=== PATIENT | female | born 1945 | race Caucasian/White ===

== ENCOUNTER 2019-08-18 13:37 | Emergency (ER) | payer MEDICARE, SELFPAY ==
--- NOTE | ~2019-08-18 | XR_ITS ---
XR wrist LT 2V 08/18/2019 16:44 Indication: Post reduction left wrist fracture Procedure: 2 views left wrist performed in fiberglass cast which obscures bone detail Comparison: 08/18/2019 Findings: There is improved alignment of comminuted intra-articular fracture distal radius. There is decreased dorsal displacement and angulation. No other fracture. There is polyarticular osteoarthriti s of the wrist most severe at the carpometacarpal joint. Impression: 1: Improved alignment of comminuted intra-articular fracture distal radius. Reviewed, dictated and finalized at location A. Impression: 1: Improved alignment of comminuted intra-articular fracture distal radius.
--- NOTE | ~2019-08-18 | CT_ITS ---
EXAMINATION: CT cervical spine wo con DATE: 08/18/2019 14:05 INDICATION: Neck pain. TECHNIQUE: Computed tomography (CT) of the cervical spine was performed without intravenous contrast. Automated exposure control and iterative reconstruction technique were employed. The dose-length pro duct was 245.30 mGy-cm. COMPARISON: None FINDINGS: There is 2 mm anterolisthesis of C3 on C4, 2 mm retrolisthesis of C4 on C5 and C5 on C6, an d 2 mm anterolisthesis of C7 on T1. Vertebral body heights are normal. There is mildly decreased disc height at C2-C3, moderately decreased disc height at C3-C4, severely decreased disc height from C4-C 5 through C6-C7, and mildly decreased disc height at C7-T1. The following disc levels are specificall y discussed: C2-C3: There is no uncovertebral joint osteoarthritis. There is severe right and mild left facet join t osteoarthritis. There is mild right neural foraminal stenosis. There is no central canal stenosis. C3-C4: There is severe bilateral uncovertebral joint osteoarthritis. There is severe right and mild l eft facet joint osteoarthritis. There is moderate right and mild left neural foraminal stenosis. Ther e is mild central canal stenosis. C4-C5: There is severe bilateral uncovertebral joint osteoarthritis. There is moderate right and karoline re left facet joint osteoarthritis. There is mild right and moderate left neural foraminal stenosis. There is moderate central canal stenosis. C5-C6: There is severe bilateral uncovertebral joint osteoarthritis. There is mild right and moderate left facet joint osteoarthritis. There is mild right and moderate left neural foraminal stenosis. Th ere is moderate central canal stenosis. C6-C7: There is severe bilateral uncovertebral joint osteoarthritis. There is severe bilateral facet joint osteoarthritis. There is mild right and moderate left neural foraminal stenosis. There is mild central canal stenosis. C7-T1: There is no uncovertebral joint osteoarthritis. There is severe bilateral facet joint osteoart hritis. There is mild bilateral neural foraminal stenosis. There is no central canal stenosis. IMPRESSION: 1. No fracture. 2. Severe cervical spondylosis. Reviewed, dictated and finalized at location A.
--- NOTE | ~2019-08-18 | XR_ITS ---
EXAMINATION: XR wrist LT min 3V DATE: 08/18/2019 14:16 INDICATION: Left wrist injury. TECHNIQUE: 4 views of left wrist were obtained. COMPARISON: None. FINDINGS: There is a comminuted fracture of distal radius with extension of fracture lines to the dis leonora articular surface and distal radioulnar joint. The main distal fracture fragment demonstrates imp action, 3 mm posterior displacement, and posterior angulation. There is 30 degrees posterior tilt of the distal articular surface. Ulnar styloid is intact. There is severe osteoarthritis of first carpom etacarpal joint. IMPRESSION: 1. Comminuted fracture of distal radius. Reviewed, dictated and finalized at location A.
--- NOTE | ~2019-08-18 | CT_ITS ---
EXAMINATION: CT brain wo con DATE: 08/18/2019 14:05 INDICATION: Head injury. TECHNIQUE: Computed tomography (CT) of the head was performed without intravenous contrast. The mA wa s adjusted according to patient size. Iterative reconstruction technique was employed. The dose-lengt h product was 605.33 mGy-cm. COMPARISON: Head CT 04/06/2006 FINDINGS: There is no intracranial hemorrhage, acute infarction, or abnormal intracranial mass lesion . The ventricles are normal in size. There is mild mucosal thickening in the ethmoid sinuses. The mas toid air cells are normal. The orbits are normal. There is left frontal lateral scalp soft tissue swe lling. IMPRESSION: 1. Normal brain. Reviewed, dictated and finalized at location A. IMPRESSION: 1. Normal brain.
[2019-08-18 13:41] VITALS: BP 135/53; PULSE 90; RESP 18; TEMP 36.3; O2SAT 97
--- NOTE | 2019-08-18 14:46 | ED.FALL ---
HPI - Fall General Chief Complaint: Fall Stated Complaint: ground level fall, wrist and head injury Time Seen by Provider: 08/18/19 14:28 History of Present Illness HPI Narrative: Patient is a 74-year-old female who presents ER status post fall. Patient was at a local establishment when she tripped over a parking block. She struck her head but did not lose consciousness. She also spent fell on her left wrist which has deformity and is painful. No numbness or tingling in the affected extremity. She is not on blood thinners. Related Data Home Medications Medication Instructions Recorded Confirmed ascorbic acid (vitamin C) 1,000 mg 1 gm PO DAILY 03/22/19 tablet aspirin 81 mg tablet,delayed 81 mg PO DAILY 03/22/19 release cholecalciferol (vitamin D3) 125 5,000 unit PO DAILY 03/22/19 mcg (5,000 unit) capsule desloratadine-pseudoephedrine ER 1 tablet PO Q12H PRN 03/22/19 2.5 mg-120 mg tab,ext.release mp 12hr glimepiride 2 mg tablet 2 mg PO QAM 03/22/19 [id number] C-Mn 500 cap PO 03/22/19 mg-400 mg capsule omega-3 360 mg-dha 144 mg-epa 216 cap PO 03/22/19 mg-fish oil 1,200 mg capsule,del rel sitagliptin 100 mg tablet 100 mg PO DAILY 03/22/19 vitamin E 400 unit capsule 400 unit PO DAILY 03/22/19 biotin mcg PO 08/18/19 Allergies Allergy/AdvReac Type Severity Reaction Status Date / Time No Known Drug Allergies Allergy Unknown Unknown Verified 08/18/19 14:19 Review of Systems Review of Systems: All systems reviewed & are unremarkable except as noted in HPI and below Cardiovascular: Cardiovascular: Denies chest pain and Denies radiating jaw, neck or arm pain Respiratory: Respiratory: Denies cough, Denies dyspnea and Denies wheezing Musculoskeletal: Musculoskeletal: Reports arthralgias and Reports joint swelling Neurologic: Denies dizziness, Reports headache(s), Denies focal weakness and Denies numbness PMFSH Past Medical History Medical History (Updated 08/18/19 @ 17:25 by Lion Cornelius MD) Chronic GERD Essential (primary) hypertension HLD (hyperlipidemia) Primary osteoarthritis, unspecified site Type 2 diabetes mellitus with hyperglycemia, without long-term current use of insulin Social History Social History Smoking status: Never smoker Second hand tobacco smoke exposure: No Alcohol intake: never Substance use: never Substance use type: does not use Gender identity (if verbalized by the patient): Female Exam Narrative: Exam Narrative: GENERAL: Well-appearing, well-nourished, and in no acute distress. HEAD: Normocephalic, bruising and swelling left forehead and supraorbital ridge EYES: PERRL and EOMI. ENT: Mucous membranes moist. Neck: No midline cervical tenderness. C-collar in place. CHEST: Clear to auscultation. No respiratory distress. HEART: Regular rate and rhythm. Normal peripheral pulses. EXTREMITIES: Focused exam of the left wrist shows deformity with tenderness palpation. Flexion extension of the fingers intact no tenderness to the elbow. Neurovascular intact. SKIN: Warm, dry, no rash. NEURO: Alert and oriented x3. Course Course Emergency Course: Informed of results, fracture reduced and splinted, contacted Dr. Valle due to the request of the family wanting to see by Dr. Leon. Will give follow-up as well as a sling and pain medication. Vital Signs Vital signs: Vital Signs Temperature 97.3 F L 08/18/19 13:41 Pulse Rate 90 08/18/19 13:41 Respiratory Rate 18 08/18/19 13:41 Blood Pressure 135/53 L 08/18/19 13:41 Pulse Oximetry 97 08/18/19 13:41 Temperature 97.3 F L 08/18/19 13:41 Pulse Rate 90 08/18/19 13:41 Respiratory Rate 18 08/18/19 13:41 Blood Pressure 135/53 L 08/18/19 13:41 Pulse Oximetry 97 08/18/19 13:41 Procedures Orthopedic Fracture Reduction Fracture #1: Fracture Reduction date: 08/18/19 Fracture Reduction
[2019-08-18] MEDS: MORPHINE SULFATE 4 MG/ML INJ IV PUSH (16:03)
[2019-08-18 18:04] VITALS: BP 122/69; PULSE 82; RESP 16; O2SAT 98
== END 2019-08-18 18:05 | disposition home or self-care (01) ==
PROVIDERS: Emergency Provider Emergency Medicine; PCP Family Medicine
DX: S52.572A Other intraarticular fracture of lower end of left radius, initial encounter for closed fracture (principal); S00.83XA Contusion of other part of head, initial encounter; K21.9 Gastro-esophageal reflux disease without esophagitis; I10 Essential (primary) hypertension; E78.5 Hyperlipidemia, unspecified; M19.90 Unspecified osteoarthritis, unspecified site; E11.9 Type 2 diabetes mellitus without complications; Z79.84 Long term (current) use of oral hypoglycemic drugs; M47.812 Spondylosis without myelopathy or radiculopathy, cervical region; W18.09XA Striking against other object with subsequent fall, initial encounter
CPT/HCPCS: 25600; 70450; 72125; 73100; 73110; 96374; 99285; A4565; J2270; L0140

== ENCOUNTER 2021-06-18 14:14 | Emergency (ER) | payer OTHER, MEDICARE, SELFPAY ==
--- NOTE | ~2021-06-18 | XR_ITS ---
EXAMINATION: XR knee RT 3V DATE: 06/18/2021 14:47 INDICATION: Right knee pain TECHNIQUE: Three views of the right knee were obtained. COMPARISON: None. FINDINGS: Alignment is normal. No fracture or osteochondral lesion. Changes of the joint replacement are noted. There is a small joint effusion. Mild soft tissue swelling is present. IMPRESSION: 1. Small joint effusion without acute osseous abnormality. Reviewed, dictated and finalized at location A.
--- NOTE | ~2021-06-18 | XR_ITS ---
EXAMINATION: XR knee LT 3V DATE: 06/18/2021 14:47 INDICATION: Left knee pain TECHNIQUE: Three views of the left knee were obtained. COMPARISON: None. FINDINGS: Alignment is normal. No fracture or osteochondral lesion. Changes of knee arthroplasty are noted. A small joint effusion is present. There is anterior soft tissue swelling of the knee. IMPRESSION: 1. Small joint effusion without acute osseous abnormality. Reviewed, dictated and finalized at location A.
--- NOTE | ~2021-06-18 | CT_ITS ---
EXAMINATION: CT cervical spine wo con DATE: 06/18/2021 14:32 INDICATION: Head injury. TECHNIQUE: Computed tomography (CT) of the cervical spine was performed without intravenous contrast. Automated exposure control and iterative reconstruction technique were employed. The dose-length pro duct was 131.45 mGy-cm. COMPARISON: CT cervical spine 08/18/2019 FINDINGS: There is 5 degrees levocurvature of cervical spine. There is 2 mm anterolisthesis of C3 on C4 and 3 mm anterolisthesis of C7 on T1. Vertebral body heights are normal. There is mildly decreased disc height at C2-C3, moderately decreased disc height at C3-C4, severely decreased disc height from C4-C5 through C6-C7, and moderately decreased disc height at C7-T1 with endplate remodeling. The fol lowing disc levels are specifically discussed: C2-C3: There is no uncovertebral joint osteoarthritis. There is severe right and mild left facet join t osteoarthritis. There is mild right neural foraminal stenosis. There is no central canal stenosis. C3-C4: There is moderate bilateral uncovertebral joint osteoarthritis. There is severe right and mild left facet joint osteoarthritis. There is moderate right and mild left neural foraminal stenosis. Th ere is mild central canal stenosis. C4-C5: There is severe bilateral uncovertebral joint osteoarthritis. There is severe bilateral facet joint osteoarthritis. There is mild right and severe left neural foraminal stenosis. There is mild ce ntral canal stenosis. C5-C6: There is severe bilateral uncovertebral joint osteoarthritis. There is severe right and modera te left facet joint osteoarthritis. There is mild right and moderate left neural foraminal stenosis. There is mild central canal stenosis. C6-C7: There is severe bilateral uncovertebral joint osteoarthritis. There is severe bilateral facet joint osteoarthritis. There is mild right and moderate left neural foraminal stenosis. There is mild central canal stenosis. C7-T1: There is no uncovertebral joint osteoarthritis. There is ankylosis of the facet joints with mi ld hypertrophy. There is mild bilateral neural foraminal stenosis. There is no central canal stenosis . IMPRESSION: 1. No fracture. 2. Severe cervical spondylosis. Reviewed, dictated and finalized at location A.
--- NOTE | ~2021-06-18 | CT_ITS ---
EXAMINATION: CT brain wo con DATE: 06/18/2021 14:31 INDICATION: Patient fell and struck left side of head, supraorbital area. TECHNIQUE: Computed tomography (CT) of the head was performed without intravenous contrast. The mA wa s adjusted according to patient size. Iterative reconstruction technique was employed. Exam dose: 60 5.33 mGy-cm total exam DLP. COMPARISON: 08/18/2019 CT brain 06/20/2016 MRI brain FINDINGS: Left supraorbital hematoma/left frontal cephalohematoma is noted. No skull fracture. There is moderate cerebral volume loss. No intracranial mass lesion or hemorrhage or cerebrovascular accide nt is detected. No midline shift or mass effect effect. There is nonspecific diminished attenuation of the cerebral white matter, likely due to chronic small vessel ischemic changes. Bilateral carotid siphon internal carotid artery calcifications are noted. No subdural or epidural hematoma is detected. Incidentally noted is persistent metopic suture; as a result, the frontal sinuses are undeveloped. The paranasal sinuses and mastoid air cells are well aerated with the exception of minimal opacificat ion of left ethmoid air cells. IMPRESSION: Left supraorbital hematoma and frontal cephalohematoma; no underlying skull fracture or clear or contrecoup intracranial hemorrhage is noted No acute intracranial abnormality Cerebral atherosclerosis and chronic small vessel ischemic changes of the cerebral white matter Reviewed, dictated and finalized at Location A. Reviewed, dictated and finalized at location B. IMPRESSION: Left supraorbital hematoma and frontal cephalohematoma; no underly ing skull fracture or clear or contrecoup intracranial hemorrhage is noted No acute intracranial abnormality Cerebral atherosclerosis and chronic small vessel ischemic changes of the cereb ral white matter
[2021-06-18 14:15] VITALS: BP 146/61; PULSE 93; RESP 16; TEMP 36.6; O2SAT 98
--- NOTE | 2021-06-18 16:10 | ED.FALL ---
HPI - Fall General Chief Complaint: Fall Stated Complaint: FALL Time Seen by Provider: 06/18/21 15:27 Source: patient and family Mode of arrival: ambulatory Limitations: no limitations History of Present Illness HPI Narrative: 75-year-old female presents to the ER after having a same level fall. Patient states she was walking into her water department and tripped on the doorway. Patient states she hit bilateral knees on hard surface and left forehead. Patient denies LOC. Patient has a history of bilateral knee replacement. Patient is on baby aspirin daily. Patient denies any other complaints. MD complaint: fall Onset (ago): hour(s) (3) Fall from: standing Fall witnessed: yes, by bystander Place fall occurred: other (Water department) Loss of consciousness: none Prolonged down time: no Symptoms prior to fall: none Context: tripped/slipped Location of injury: head Location of injury - extremities: Right: knee Associated symptoms (after fall): denies Related Data Home Medications Medication Instructions Recorded Confirmed aspirin 81 mg tablet,delayed 81 mg PO DAILY 03/22/19 05/27/21 release cholecalciferol (vitamin D3) 125 5,000 unit PO DAILY 03/22/19 05/27/21 mcg (5,000 unit) capsule desloratadine-pseudoephedrine ER 1 tablet PO Q12H PRN 03/22/19 05/27/21 2.5 mg-120 mg tab,ext.release mp 12hr [id number] C-Mn 500 cap PO 03/22/19 05/27/21 mg-400 mg capsule Allergies Allergy/AdvReac Type Severity Reaction Status Date / Time No Known Drug Allergies Allergy Unknown Unknown Verified 01/21/21 10:30 Review of Systems Review of Systems: All systems reviewed & are unremarkable except as noted in HPI and below Constitutional: Constitutional: Reports no additional constitutional complaints Eyes: Eyes: Reports no additional eye complaints ENT: Reports system reviewed and no additional complaints, except as documented Cardiovascular: Cardiovascular: Reports no additional cardiovascular complaints Respiratory: Respiratory: Reports no additional respiratory complaints Gastrointestinal: Gastrointestinal: Reports no additional gastrointestinal complaints Genitourinary: Genitourinary: Reports no additional female genitourinary complaints Musculoskeletal: Musculoskeletal: Reports arthralgias (Bilaterally) Integumentary/Breasts: Comments: Hematoma Neurologic: Reports system reviewed and no additional complaints, except as documented Psychiatric: Psychiatric: Reports no additional psychiatric complaints Endocrine: Endocrine: Reports no additional endocrine complaints Hematologic/Lymphatic: Hematologic/Lymphatic: Reports no additional hematologic/lymphatic complaints Allergic/Immunologic: Allergic/Immunologic: Reports no additional allergic/immunologic complaints [facility] Past Medical History Medical History (Updated 06/18/21 @ 16:09 by Ronnie Haile APRN) Abnormality of heart beat Arthritis Chronic GERD Depression Essential (primary) hypertension HLD (hyperlipidemia) Primary osteoarthritis, unspecified site Type 2 diabetes mellitus with hyperglycemia, without long-term current use of insulin Surgical History Surgical History History of appendectomy History of hip replacement History of hysterectomy with bilateral oophorectomy History of knee replacement Family History Family History Mother Hypertension Family history of coronary artery disease Other Diabetes mellitus Family history of arthritis Social History Social History Smoking status: Never smoker Second hand tobacco smoke exposure: No Alcohol intake: current Alcohol use details: holidays Substance use: never Substance use type: does not use Gender identity (if verbalized by the patient): Female Exam Narrative: GENERAL: Well-ap
[2021-06-18 16:24] VITALS: BP 140/64; PULSE 85; RESP 18; O2SAT 100
== END 2021-06-18 16:26 | disposition home or self-care (01) ==
PROVIDERS: Emergency Provider Nurse Practitioner Family; PCP Family Medicine
DX: S00.83XA Contusion of other part of head, initial encounter (principal); M25.562 Pain in left knee; M25.561 Pain in right knee; I10 Essential (primary) hypertension; E78.5 Hyperlipidemia, unspecified; E11.9 Type 2 diabetes mellitus without complications; Z79.82 Long term (current) use of aspirin; Z96.653 Presence of artificial knee joint, bilateral; W01.0XXA Fall on same level from slipping, tripping and stumbling without subsequent striking against object, initial encounter
CPT/HCPCS: 70450; 72125; 73562; 99284

== ENCOUNTER 2022-09-20 12:12 | Outpatient (CLI) | payer MEDICARE, SELFPAY ==
[2022-09-20 13:04] LABS: Basophils Percent Auto 0.3 % (0.2-1.2); Eosinophils Absolute Auto 0.1 K/mm3 (0-0.3); Eosinophils Percent Auto 1.6 % (0-4.4); Hematocrit 33.9 % (37.0-47.0); Hemoglobin 10.9 g/dL (12.0-15.0); Immature Granulocyte Absolute 0.02 K/mm3 (0.00-0.031); Immature Granulocyte Percent A 0.3 % (0-0.5); Lymphocytes Absolute Auto 1.95 K/mm3 (0.9-3.2); Lymphocytes Percent Auto 31.1 % (18.3-44.2); Mean Corpuscular HGB Conc 32.2 g/dl (32-36); Mean Corpuscular Hemoglobin 25.3 pg (26-34); Mean Corpuscular Volume 78.8 fl (80-100); Mean Platelet Volume 10.2 fl (7.4-10.4); Monocytes Absolute Auto 0.5 K/mm3 (0.1-0.6); Monocytes Percent Auto 8.3 % (2.6-8.5); Neutrophils Absolute Auto 3.7 K/mm3 (1.3-6.7); Neutrophils Percent Auto 58.4 % (45.5-73.1); Platelet Count Result 309 k/mm3 (150-375); Red Cell Distribution Width 15.7 % (11.5-14.5); White Blood Count 6.3 K/mm3 (4.5-10.0)
[2022-09-20 13:10] LABS: Alanine Aminotransferase 20 U/L (6-35); Albumin Level 4.2 g/dL (3.5-5.1); Alkaline Phosphatase 89 U/L (38-126); Anion Gap 25 mmol/L (8-16); Aspartate Amino Transferase 27 U/L (14-36); Bilirubin,Total 0.9 mg/dL (0.2-1.3); Blood Urea Nitrogen 21 mg/dL (7-17); Calcium 9.3 mg/dL (8.4-10.2); Carbon Dioxide 29 mmol/L (22-30); Chloride 82 mmol/L (98-107); Estimated Glomerular Filt Rate 43; Glucose 222 mg/dL (65-110); Potassium 3.7 mmol/L (3.4-5.0); Sodium 136 mmol/L (137-145)
== END 2022-09-20 12:13 | disposition home or self-care (01) ==
PROVIDERS: PCP Family Medicine; Visit Provider Family Medicine
DX: R44.3 Hallucinations, unspecified (principal); I12.9 Hypertensive chronic kidney disease with stage 1 through stage 4 chronic kidney disease, or unspecified chronic kidney disease; N18.9 Chronic kidney disease, unspecified
CPT/HCPCS: 36415; 80053; 84443; 85025

== ENCOUNTER 2022-11-16 13:27 | Observation (INO) | payer MEDICARE, SELFPAY ==
[2022-11-16] VITALS (17 sets, daily range): BP systolic 112–152; BP diastolic 53–66; PULSE 66–90; RESP 15–19; TEMP 36.5–36.6; O2SAT 96–98
--- NOTE | ~2022-11-16 | XR_ITS ---
EXAMINATION: XR chest 2V DATE: 11/16/2022 14:11 INDICATION: Chest pain radiating down the left arm. TECHNIQUE: Frontal and lateral views of the chest were obtained. COMPARISON: Chest 2 views 12/25/2015 FINDINGS: There is mild atelectasis at left lung base. No pleural effusion or pneumothorax. The heart size is normal. IMPRESSION: 1. Mild atelectasis at left lung base. Reviewed, dictated and finalized at location A.
--- NOTE | ~2022-11-16 | MR_ITS ---
EXAMINATION: MR brain/brain stem wo/w con DATE: 11/20/2022 09:58 INDICATION: Tinnitus. TECHNIQUE: Magnetic resonance imaging (MRI) of the brain and brainstem was performed without and with 12 mL MultiHance intravenous contrast. COMPARISON: Brain MRI 06/20/2016, head CT 06/18/2021 FINDINGS: There is a small old infarct in right occipital lobe. There is a small old infarct in right cerebellum. There are scattered areas of nonspecific increased T2-weighted signal intensity in the c erebral white matter, which is within normal limits for the patient's age. The ventricles are normal in size. The paranasal sinuses are clear. There are likely changes of ocular lens replacement surgeri es. The mastoid air cells are normal. IMPRESSION: 1. 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 Reviewed, dictated and finalized at location A.
--- NOTE | ~2022-11-16 | US_ITS ---
EXAMINATION: US carotid duplex BI DATE: 11/17/2022 15:07 INDICATION: Bilateral carotid bruit TECHNIQUE: Grayscale, color Doppler, and pulsed Doppler images of the cervical carotid arteries were obtained. The degree of vessel stenosis is placed in one of the following categories: normal, <50%, 5 0-69%, >=70% but less than near-occlusion, near-occlusion, or total occlusion. Note that percent sten osis relative to normal distal artery lumen diameter is indirectly measured from velocity measurement s as described by Charlie, et al. Radiology 2003; 229:340-346. Notes: Normal: Peak systolic velocity <125 centimeters/sec and no plaque <50%. Peak systolic velocity <125 ( EDV <40; ICA/CCA PSV ratio <2.0; used these factors only a tandem lesions or low cardiac output or co ntralateral disease) 50-69 %: PSV 125-230 (EDV 40-100; ratio 2-4) >= 70% but less than near occlusion: PSV greater than 230 (EDV > 100; ratio> 4.0) Near Occlusion: PSV that is variable; markedly narrowed lumen Occlusion: Absent flow on color/spectral Doppler and no lumen on santiago scale. COMPARISON: None. FINDINGS: RIGHT: The right common carotid artery (CCA) peak systolic velocity (PSV) is 78 cm/s. The right internal car otid artery (ICA) PSV is 96 cm/s. The right ICA end-diastolic velocity (EDV) is 33 cm/s. The right IC A/CCA PSV ratio is 1.2. The external carotid artery (ECA) PSV is 38 cm/s. There is antegrade flow in the right vertebral artery. LEFT: The left CCA PSV is 53 cm/s. The left ICA PSV is 79 cm/s. The left ICA EDV is 23 cm/s. The left ICA/C CA PSV ratio is 1.5. The ECA PSV is 44 cm/s. There is antegrade flow in the left vertebral artery. IMPRESSION: 1. Less than 50% stenosis in the right internal carotid artery by sonographic criteria. 2. Less than 50% stenosis in the left internal carotid artery by sonographic criteria. Reviewed, dictated and finalized at location B. IMPRESSION: 1. Less than 50% stenosis in the right internal carotid artery by sonographic c eber. 2. Less than 50% stenosis in the left internal carotid artery by sonographic cr zach.
--- NOTE | 2022-11-16 13:28 | ECG_ITS ---
Measurements Intervals [place] Rate: 75 P: 49 RI: 244 QRS: -8 QRSD: 144 T: 10 QT: 415 QTc: 466 Interpretive Statements SINUS RHYTHM WITH FIRST DEGREE AV BLOCK POSSIBLE LEFT ATRIAL ENLARGEMENT [-0.1mV P-WAVE IN V1/V2] RIGHT BUNDLE BRANCH BLOCK [120+ ms QRS DURATION, UPRIGHT V1, 40+ ms S IN I/aVL/V4/V5/V6] NO PREVIOUS ECG AVAILABLE FOR COMPARISON Electronically Signed On 11-16-2022 16:34:28 CDT by Manas Duncan M.D.
[2022-11-16 13:44] LABS: Basophils Percent Auto 0.5 % (0.2-1.2); Eosinophils Absolute Auto 0.2 K/mm3 (0-0.3); Eosinophils Percent Auto 3.5 % (0-4.4); Hematocrit 33.5 % (37.0-47.0); Hemoglobin 10.6 g/dL (12.0-15.0); Immature Granulocyte Absolute 0.02 K/mm3 (0.00-0.031); Immature Granulocyte Percent A 0.3 % (0-0.5); Lymphocytes Absolute Auto 2.23 K/mm3 (0.9-3.2); Lymphocytes Percent Auto 34.2 % (18.3-44.2); Mean Corpuscular HGB Conc 31.6 g/dl (32-36); Mean Corpuscular Hemoglobin 25.5 pg (26-34); Mean Corpuscular Volume 80.5 fl (80-100); Mean Platelet Volume 9.7 fl (7.4-10.4); Monocytes Absolute Auto 0.5 K/mm3 (0.1-0.6); Monocytes Percent Auto 6.9 % (2.6-8.5); Neutrophils Absolute Auto 3.6 K/mm3 (1.3-6.7); Neutrophils Percent Auto 54.6 % (45.5-73.1); Platelet Count Result 408 k/mm3 (150-375); Red Blood Count 4.16 M/mm3 (4.2-5.4); Red Cell Distribution Width 15.3 % (11.5-14.5); White Blood Count 6.5 K/mm3 (4.5-10.0)
[2022-11-16 13:53] LABS: Alanine Aminotransferase 20 U/L (6-35); Albumin Level 3.9 g/dL (3.5-5.1); Alkaline Phosphatase 92 U/L (38-126); Anion Gap 9 mmol/L (8-16); Aspartate Amino Transferase 31 U/L (14-36); Bilirubin,Total 0.6 mg/dL (0.2-1.3); Blood Urea Nitrogen 25 mg/dL (7-17); Calcium 9.3 mg/dL (8.4-10.2); Carbon Dioxide 26 mmol/L (22-30); Chloride 101 mmol/L (98-107); Estimated CRCL calculation 22 ml/min; Estimated Glomerular Filt Rate 36; Glucose 200 mg/dL (65-110); Lipase 94 U/L (23-300); Potassium 3.9 mmol/L (3.4-5.0); Sodium 136 mmol/L (137-145)
[2022-11-16 14:03] LABS: Prothrombin Time 13.9 Seconds (11.1-14.7)
[2022-11-16 14:05] LABS: Partial Thromboplastin Time 27.8 SECONDS (22.3-36.8); Troponin I < 0.012 ng/mL (0.000-0.034)
--- NOTE | 2022-11-16 14:13 | PC.NURSE ---
Pt sitting in bay 2 on the floor refusing to get up, stating my chest feels so tight now I cant do this! . Rene and Brandon trying to assist patient up for EKG. Pt stating he needs to lay down and cant handle this Pt made aware there are no open rooms in the ED at this time. EKG and lab work completed, pt agreeable to sit in family services room until a bed becomes available.
[2022-11-16] MEDS: ASPIRIN 81 MG CHEWABLE TABLET 324 MG PO (14:33)
--- NOTE | 2022-11-16 14:49 | ED.CHESTPAIN ---
HPI - Chest Pain General Chief Complaint: Chest Pain Stated Complaint: chest pain Time Seen by Provider: 11/16/22 14:28 History of Present Illness HPI narrative: Patient is a 77-year-old female with history of HTN, CKIII, DM, here with chest pain. she notes that the pain began yesterday and is intermittent in nature usually lasting 1-2 minutes per episode. She notes that it occurs while she is moving around as well as at rest. She states that if she gets the pain while she is doing activity she does have some associated diaphoresis and shortness of breath. She note if the episodes occur at rest she does not have these associated symptoms. Pain denies radiating to the arm or the neck. She denies any lightheadedness. she denies current chest pain. She denies any prior cardiac history, she received multiple prior normal stress test in the past which seemed to occur in conjunction with needing joint surgeries. The last of these she believes was in the early . is that she denies any lower extremity swelling or calf pain. She denies any cough, congestion, fever, chills. She does take lasix every other day for leg swelling. Related Data Home Medications Medication Instructions Recorded Confirmed aspirin 81 mg tablet,delayed 81 mg PO DAILY 03/22/19 09/20/22 release cholecalciferol (vitamin D3) 125 5,000 unit PO DAILY 03/22/19 09/20/22 mcg (5,000 unit) capsule desloratadine-pseudoephedrine ER 1 tablet PO Q12H PRN Congestion 03/22/19 09/20/22 2.5 mg-120 mg tab,ext.release mp 12hr (Clarinex-D 12 HOUR) [id number] C-Mn 500 cap PO 03/22/19 09/20/22 mg-400 mg capsule (Glucosamine Chondroitin Maximum Strength) Allergies Allergy/AdvReac Type Severity Reaction Status Date / Time No Known Drug Allergies Allergy Unknown Unknown Verified 09/20/22 11:24 Review of Systems Review of Systems: All systems reviewed & are unremarkable except as noted in HPI and below PMFSH Past Medical History Medical History Abnormality of heart beat Arthritis Chronic GERD Depression Essential (primary) hypertension HLD (hyperlipidemia) Hy kid NOS w cr kid I-IV Primary osteoarthritis, unspecified site Type 2 diabetes mellitus with hyperglycemia, without long-term current use of insulin Surgical History Surgical History History of appendectomy History of hip replacement History of hysterectomy with bilateral oophorectomy History of knee replacement Family History Family History Mother Hypertension Family history of coronary artery disease Other Diabetes mellitus Family history of arthritis Social History Social History Smoking status: Never smoker Second hand tobacco smoke exposure: No Alcohol intake: current Alcohol use details: holidays Substance use: never Substance use type: does not use Living arrangements: with family Occupation/Education: retired Gender identity (if verbalized by the patient): Female Exam Narrative: GENERAL: Well-appearing, well-nourished, and in no acute distress. HEAD: Normocephalic, atraumatic. EYES: PERRLA and EOMI. ENT: Nares clear. Mucous membranes moist. NECK: Supple. CHEST: Clear to auscultation. No respiratory distress. HEART: Regular rate and rhythm. Normal peripheral pulses. ABDOMEN: Soft, nontender, nondistended. EXTREMITIES: Normal range of motion. No Calf tenderness or leg edema. SKIN: Warm, dry, no rash. NEURO: No focal deficits. Alert and oriented x3. PSYCH: Normal mood and affect. Course Course Emergency Course: Chart review performed. Patient here with chest pain x2 days and dizziness. Triage vitals show HTN, otherwise normal. Triage workup reviewed. CBC at her baseline. Mild RUTHANN with creatinine at
[2022-11-16 16:47] LABS: Troponin I < 0.012 ng/mL (0.000-0.034)
[2022-11-16 18:36] LABS: Influenza A QL RT-PCR Negative (Negative); Influenza B QL RT-PCR Negative (Negative); RSV RNA, RT-PCR Negative (Negative); SARS-CoV-2 RNA PCR Negative (Negative)
--- NOTE | 2022-11-16 19:09 | PC.NURSE ---
Assumed care of pt from STEVENSON Sánchez at this time.
--- NOTE | 2022-11-16 19:17 | PC.NURSE ---
care and report given to STEVENSON Saravia. all questions answered.
[2022-11-16 19:48] LABS: Troponin I < 0.012 ng/mL (0.000-0.034)
--- NOTE | 2022-11-16 20:37 | PM.IMHP ---
H&P: HPI History of Present Illness Date/Time: 11/16/22 20:37 Chief Complaint: chest pain Narrative: This is a 77-year-old female with past medical history significant for hypertension, restless leg syndrome, type diabetes mellitus, degenerative joint disease, GERD, dyslipidemia. Patient presents to the emergency room due to chest pain localized to the precordial area with radiation around the ribcage to the back patient denies any rashes, fevers, cough, sputum production, nausea, vomiting has had this pain on and off for the last week or so denies any lightheadedness, syncope, near syncope, no leg swelling. Preliminary workup in emergency room has been significant for CBC hemoglobin is 10, MCV is 80, hematocrit is 33, chemistry panel creatinine is 1.4, BUN is 25. EKG Rate 75 RI 244 QRSd 144 QT 415 QTc 466 --[place]-- P 49 QRS -8 T 10 SINUS RHYTHM WITH FIRST DEGREE AV BLOCK POSSIBLE LEFT ATRIAL ENLARGEMENT [-0.1mV P-WAVE IN V1/V2] RIGHT BUNDLE BRANCH BLOCK [120+ ms QRS DURATION, UPRIGHT V1, 40+ ms S IN I/aVL/V4/V5/V6] NO PREVIOUS ECG AVAILABLE FOR COMPARISON Electronically Signed On 11-16-2022 16:34:28 EXAMINATION: XR chest 2V DATE: 11/16/2022 14:11 INDICATION: Chest pain radiating down the left arm. TECHNIQUE: Frontal and lateral views of the chest were obtained. COMPARISON: Chest 2 views 12/25/2015 FINDINGS: There is mild atelectasis at left lung base. No pleural effusion or pneumothorax. The heart size is normal. IMPRESSION: 1. Mild atelectasis at left lung base. Review of Systems Review of Systems: Chest pain Constitutional: Constitutional: Denies chills, Denies fatigue, Denies fever(s), Denies malaise, Denies night sweats, Denies poor appetite and Denies weakness Eyes: Eyes: Denies change in vision ENT: Denies dysphagia, Denies vertigo, Denies dizziness and Denies odynophagia Cardiovascular: Cardiovascular: Reports chest pain, Reports chest pain at rest, Denies leg edema, Denies lightheadedness, Denies radiating jaw, neck or arm pain, Denies palpitations and Denies dyspnea Respiratory: Respiratory: Denies cough, Denies excessive phlegm production, Denies dyspnea and Denies wheezing Gastrointestinal: Gastrointestinal: Denies abdominal pain, Denies melena, Denies hematochezia, Denies coffee ground emesis, Denies dyspepsia, Denies heartburn, Denies diarrhea, Denies nausea and Denies vomiting Genitourinary: Genitourinary: Denies dysuria and Denies flank pain Musculoskeletal: Musculoskeletal: Denies back pain, Reports myalgias and Reports arthralgias (knees) Integumentary/Breasts: Skin/Breast: Denies rash Neurologic: Denies abnormal gait, Denies vertigo, Denies dizziness, Denies focal weakness and Denies Sensory deficit (Neuro) Psychiatric: Psychiatric: Reports no additional psychiatric complaints and Reports as per HPI Endocrine: Endocrine: Denies cold intolerance, Denies fatigue, Denies flushing, Denies heat intolerance, Denies polyphagia, Denies polydipsia and Denies palpitations Hematologic/Lymphatic: Hematologic/Lymphatic: Reports no additional hematologic/lymphatic complaints and Reports as per HPI Allergic/Immunologic: Allergic/Immunologic: Reports no additional allergic/immunologic complaints and Reports as per HPI PMFSH Past Medical History Medical History (Updated 11/17/22 @ 00:14 by Mabel Vazquez MD) Abnormality of heart beat Arthritis Chronic GERD Depression Essential (primary) hypertension HLD (hyperlipidemia) Hy kid NOS w cr kid I-IV Primary osteoarthritis, unspecified site Type 2 diabetes mellitus with hyperglycemia, without long-term current use of insulin Surgical History Surgical History History of appendectomy History of hip replacement History of hysterectomy with bilateral oophorectomy History of knee replacement Family History Family History Mother Hypertension Fa
--- NOTE | 2022-11-16 21:11 | ADMGEN ---
This patient, Nadeen Lanier, was admitted to IMU Room 205-01. Patient/family oriented to hospital policies and general routines including ID bracelet, bed and alarms, visiting hours, pain management, procedures, bathroom and other care routines, personal items, smoking policy, room service/diet, and visiting hours. Information on how to activate the Rapid Response Team has been discussed. Patient/Family are encouraged to report perceived risks to care and to ask questions if they do not understand what they are told or what they should do.
[2022-11-17] VITALS (18 sets, daily range): BP systolic 111–147; BP diastolic 48–58; PULSE 64–116; RESP 16–18; TEMP 36.1–36.7; O2SAT 95–99
--- NOTE | 2022-11-17 | ECHO_ITS ---
Patient Info Name: Nadeen Lanier Age: 77 years : 1945 Gender: Female Ht: 61 in Wt: 138 lbs BSA: 1.66 m2 HR: 89 bpm BP: 135 / 55 mmHg Heart Rhythm: Sinus Rhythm Technical Quality: Fair Exam Date: 11/17/2022 3:48 PM Exam Location: [facility] Pulmonary Exam Room: [facility] Patient Status: Inpatient Admit Date: 11/16/2022 Staff Ordering Physician: Tenzin Lamar MD Landscape Laborer: Alissa Stern RDCS Attending Provider: Garrett Canchola MD Referring Physician: Brianda MOORE; Exam Type: CA echo doppler color flow Study Info Indications - systolic murmur Complete two-dimensional, color flow and Doppler transthoracic echocardiogram is performed. Summary 1. Complete two-dimensional, color flow and Doppler transthoracic echocardiogram is performed. 2. Left ventricular chamber dimension is normal. 3. Left ventricular systolic function is normal, estimated at 65-70%. 4. There is mildly increased left ventricular wall thickness. 5. The left ventricular diastolic function is grade I diastolic dysfunction. 6. Left atrial chamber dimension is moderately enlarged. 7. Aneurysmal atrial septum with PFO noted by color flow imaging. 8. There is moderate aortic valve stenosis with a peak velocity of 307 cm/s, mean gradient of 23 mmHg, and aortic valve area of 1.2 cm2. 9. There is moderate aortic valve regurgitation. 10. There is severe aortic valve calcification. 11. There is mild mitral valve regurgitation. 12. The mitral valve annulus is severely calcified. 13. There is mild tricuspid valve regurgitation. 14. There is mild pulmonic regurgitation. 15. Mild pulmonary hypertension with RVSP of 41 mmHG. Left Ventricle Left ventricular chamber dimension is normal. Left ventricular systolic function is normal, estimated at 65-70%. There is mildly increased left ventricular wall thickness. The left ventricular diastolic function is grade I diastolic dysfunction. Right Ventricle Right ventricular chamber dimension is normal. Right ventricular systolic function is normal. Left Atria Left atrial chamber dimension is moderately enlarged. Right Atria Right atrial chamber dimension is normal. Atrial Septum Aneurysmal atrial septum with PFO noted by color flow imaging. Aortic Valve The aortic valve is trileaflet. There is moderate aortic valve stenosis with a peak velocity of 307 cm/s, mean gradient of 23 mmHg, and aortic valve area of 1.2 cm2. There is moderate aortic valve regurgitation. There is severe aortic valve calcification. Pulmonic Valve The pulmonic valve is normal. There is no pulmonic valve stenosis. There is mild pulmonic regurgitation. Mitral Valve There is no mitral valve stenosis. There is mild mitral valve regurgitation. The mitral valve annulus is severely calcified. Tricuspid Valve The tricuspid valve leaflets are normal. There is no significant tricuspid valve stenosis. There is mild tricuspid valve regurgitation. Mild pulmonary hypertension with RVSP of 41 mmHG. Pericardium/Pleural The pericardium appears thickened pericardium. Inferior Vena Cava Normal inferior vena cava with >50% collapse upon inspiration consistent with normal right atrial pressure, 10 mmHg. Aorta The aortic root size at the sinus of Valsalva is normal. Left Ventricular Outflow Tract Name Value Normal LVOT 2D
[2022-11-17 05:20] LABS: Hemoglobin A1C 8.3 % (<5.7)
[2022-11-17 05:23] LABS: Alanine Aminotransferase 17 U/L (6-35); Albumin Level 3.4 g/dL (3.5-5.1); Alkaline Phosphatase 80 U/L (38-126); Anion Gap 8 mmol/L (8-16); Aspartate Amino Transferase 21 U/L (14-36); Bilirubin,Total 0.5 mg/dL (0.2-1.3); Blood Urea Nitrogen 24 mg/dL (7-17); Calcium 8.9 mg/dL (8.4-10.2); Carbon Dioxide 26 mmol/L (22-30); Chloride 102 mmol/L (98-107); Cholesterol 122 mg/dL (0-200); Estimated CRCL calculation 27 ml/min; Estimated Glomerular Filt Rate 40; Glucose 158 mg/dL (65-110); HDL Direct 50 mg/dL; Potassium 3.4 mmol/L (3.4-5.0); Sodium 136 mmol/L (137-145); Triglycerides 71 mg/dL (<150)
[2022-11-17 05:25] LABS: Basophils Percent Auto 0.5 % (0.2-1.2); Eosinophils Absolute Auto 0.5 K/mm3 (0-0.3); Eosinophils Percent Auto 8.1 % (0-4.4); Hematocrit 29.8 % (37.0-47.0); Hemoglobin 9.4 g/dL (12.0-15.0); Immature Granulocyte Absolute 0.01 K/mm3 (0.00-0.031); Immature Granulocyte Percent A 0.2 % (0-0.5); Lymphocytes Absolute Auto 2.39 K/mm3 (0.9-3.2); Lymphocytes Percent Auto 41.1 % (18.3-44.2); Mean Corpuscular HGB Conc 31.5 g/dl (32-36); Mean Corpuscular Hemoglobin 25.7 pg (26-34); Mean Corpuscular Volume 81.4 fl (80-100); Mean Platelet Volume 9.8 fl (7.4-10.4); Monocytes Absolute Auto 0.6 K/mm3 (0.1-0.6); Monocytes Percent Auto 10.7 % (2.6-8.5); Neutrophils Absolute Auto 2.3 K/mm3 (1.3-6.7); Neutrophils Percent Auto 39.4 % (45.5-73.1); Platelet Count Result 373 k/mm3 (150-375); Red Blood Count 3.66 M/mm3 (4.2-5.4); Red Cell Distribution Width 15.3 % (11.5-14.5); White Blood Count 5.8 K/mm3 (4.5-10.0)
[2022-11-17 05:34] LABS: LDL Cholesterol Direct 48 mg/dL
[2022-11-17 05:53] LABS: Thyroid Stimulating Hormone 0.081 uIU/mL (0.465-4.680)
[2022-11-17] MEDS: PANTOPRAZOLE 40 MG TABLET PO (09:27)
[2022-11-17] MEDS: amLODIPine BESYLATE 5 MG TABLET PO (09:31)
[2022-11-17] MEDS: ATORVASTATIN 40 MG TABLET PO (09:31)
[2022-11-17] MEDS: ASPIRIN 81 MG ENTERIC TABLET PO (09:31)
[2022-11-17 13:33] LABS: Glucose Point of Care 234 mg/dl (65-105)
--- NOTE | 2022-11-17 14:10 | PM.CNCAR ---
Assessment and Plan Assessment and plan (1) Chest pain: Qualifiers: Chest pain type: unspecified Qualified Code(s): R07.9 - Chest pain, unspecified Code(s): R07.9 - Chest pain, unspecified Status: Acute Assessment and Plan: Chest pain is very atypical and probably musculoskeletal in etiology. Troponins are negative. No acute ST-T wave abnormalities but she does have multitude risk factors coronary disease. Will proceed with Lexiscan myocardial perfusion study tomorrow. NPO after midnight. (2) Hypertension associated with diabetes: Code(s): E11.59 - Type 2 diabetes mellitus with other circulatory complications; I15.2 - Hypertension secondary to endocrine disorders Status: Acute Assessment and Plan: At goal. Continue amlodipine (3) Hypokalemia: Code(s): E87.6 - Hypokalemia Status: Acute Assessment and Plan: Will replace with 40 mg potassium chloride p.o. x1 (4) Hyperthyroidism: Code(s): E05.90 - Thyrotoxicosis, unspecified without thyrotoxic crisis or storm Status: Acute Assessment and Plan: Check a TSH and free T4 level and workup per hospitalist (5) Systolic ejection murmur: Code(s): R01.1 - Cardiac murmur, unspecified Status: Acute Assessment and Plan: 2D echocardiogram Doppler for further evaluation (6) Bilateral carotid bruits: Code(s): R09.89 - Other specified symptoms and signs involving the circulatory and respiratory systems Status: Acute Assessment and Plan: Bilateral carotid ultrasound to be ordered History of Present Illness History of Present Illness Consult date/time: 11/17/22 14:10 Requesting physician: Mabel Vazquez MD Consult reason: chest pain Reason For Visit: chest pain Narrative: Reason for consultation: Chest pain Date of service 11/17/2022 Requesting provider: Dr. Munoz History patient is a 77-year-old female with a multitude of risk factors but she herself does not have known coronary disease. She presented hospital because of chest pain. Patient states that she has been having some lateral and submammary chest pain on the left side that is sharp in nature and can sometimes radiate down the left arm. It has been a recurring off and on for the past couple weeks. Will last for a few seconds and occurs about 3 times per day. She says that exertion does tend to bring it on. She does have some occasional sweatiness but no nausea or shortness of breath. She denies any syncope, presyncope, paroxysmal nocturnal dyspnea. She has been having some worsening palpitations as of late. She also has had edema for the past year or so. She came to hospital at her EKG shows no acute ST or T-wave abnormalities. Troponins are negative x3. She does have hypokalemia and a suppressed TSH suggestive of hyperthyroidism. Review of Systems Review of Systems: All systems reviewed & are unremarkable except as noted in HPI and below Constitutional: Constitutional: Denies body ache(s) Eyes: Eyes: Denies blurry vision ENT: Denies Normal hearing present Cardiovascular: Cardiovascular: Reports chest pain and Reports palpitations Respiratory: Respiratory: Denies chest congestion Gastrointestinal: Gastrointestinal: Denies abdominal pain Genitourinary: Genitourinary: Denies hematuria Musculoskeletal: Musculoskeletal: Denies back pain Integumentary/Breasts: Skin/Breast: Denies dry skin Neurologic: Denies Abnormal speech present Psychiatric: Psychiatric: Denies behavioral changes Endocrine: Endocrine: Reports excessive sweating Hematologic/Lymphatic: Hematologic/Lymphatic: Denies easy bleeding Allergic/Immunologic: Allergic/Immunologic: Denies GI upset with certain foods PMFSH Past Medical History Medical History (Updated 11/17/22 @ 14:14 by Tenzin Lamar MD) Abnormality of heart beat Arthritis Chronic GERD Depression Essential (primary) hypertension H
[2022-11-17] MEDS: POTASSIUM CHLORIDE 20 MEQ ER TABLET 40 MEQ PO (15:18)
[2022-11-17] MEDS: INSULIN ASPART (*BKC) 100 UNITS/ML SUB-Q (16:32)
--- NOTE | 2022-11-17 16:50 | PM.IMPN ---
Progress Note: A&P Assessment and Plan (1) Chest pain: Qualifiers: Chest pain type: unspecified Qualified Code(s): R07.9 - Chest pain, unspecified Code(s): R07.9 - Chest pain, unspecified Status: Acute Assessment and Plan: Monitor on telemetry trend Troponin ECHo and stress test ordered cardiology consuled on admission (2) Type 2 diabetes mellitus with hyperglycemia, without long-term current use of insulin: Code(s): E11.65 - Type 2 diabetes mellitus with hyperglycemia Status: Acute Assessment and Plan: Holding metformin Holding glimepiride Insulin sliding scale as needed (3) Chronic GERD: Code(s): K21.9 - Gastro-esophageal reflux disease without esophagitis Status: Acute (4) CKD (chronic kidney disease) stage 3, GFR 30-59 ml/min: Code(s): N18.30 - Chronic kidney disease, stage 3 unspecified Status: Acute Assessment and Plan: Holding chlorthalidone Continue to monitor Daily basic metabolic profile Plan DVT prophylaxis subQ Lovenox. Subjective Date/time seen: 11/17/22 16:50 Interval history: patient denies any chest pain at bedside awaiting stress test Review of Systems Review of Systems: Chest pain Constitutional: Constitutional: Denies chills, Denies fatigue, Denies fever(s), Denies malaise, Denies night sweats, Denies poor appetite and Denies weakness Eyes: Eyes: Denies change in vision ENT: Denies dysphagia, Denies vertigo, Denies dizziness and Denies odynophagia Cardiovascular: Cardiovascular: Reports chest pain, Reports chest pain at rest, Denies leg edema, Denies lightheadedness, Denies radiating jaw, neck or arm pain, Denies palpitations and Denies dyspnea Respiratory: Respiratory: Denies cough, Denies excessive phlegm production, Denies dyspnea and Denies wheezing Gastrointestinal: Gastrointestinal: Denies abdominal pain, Denies melena, Denies hematochezia, Denies coffee ground emesis, Denies dysphagia, Denies dyspepsia, Denies heartburn, Denies diarrhea, Denies nausea, Denies odynophagia and Denies vomiting Genitourinary: Genitourinary: Denies dysuria and Denies flank pain Musculoskeletal: Musculoskeletal: Denies abnormal gait, Denies back pain, Reports myalgias and Reports arthralgias (knees) Integumentary/Breasts: Skin/Breast: Denies rash Neurologic: Denies abnormal gait, Denies vertigo, Denies dizziness, Denies focal weakness, Denies Sensory deficit (Neuro) and Denies weakness Psychiatric: Psychiatric: Reports no additional psychiatric complaints and Reports as per HPI Endocrine: Endocrine: Denies cold intolerance, Denies fatigue, Denies flushing, Denies heat intolerance, Denies polyphagia, Denies polydipsia and Denies palpitations Hematologic/Lymphatic: Hematologic/Lymphatic: Reports no additional hematologic/lymphatic complaints and Reports as per HPI Allergic/Immunologic: Allergic/Immunologic: Reports no additional allergic/immunologic complaints, Reports as per HPI and Denies wheezing Exam Narrative: Patient is laying in bed Const: General: comfortable, no acute distress, well developed, alert, awake and average body habitus Nutritional Appearance: average body habitus Orientation/consciousness: patient oriented x3 Other: Patient is laying comfortably in bed well appearing HENMT: Head: normal to inspection, normocephalic and atraumatic Ears: hearing grossly normal bilaterally Face/Nose/Sinus: normal facial exam Face and sinus: normal facial exam Eyes: General: appearance normal, both eyes and all related structures Pupils: Equal, round and reactive pupils present EOM: EOMs intact bilaterally Neck: Neck: full ROM, no lymphadenopathy and no JVD Thyroid: thyroid normal Lymphatic: no lymphadenopathy noted Resp: Effort & Inspection: normal respiratory effort and able to speak in complete sentences Auscultation: clear to auscultation bilaterally Cardio: Jugular venous distensi
[2022-11-17 17:36] LABS: Glucose Point of Care 236 mg/dl (65-105)
[2022-11-17 18:24] LABS: T4 Thyroxine 7.89 ug/dL (5.53-11.0)
[2022-11-17 20:32] LABS: Glucose Point of Care 194 mg/dl (65-105)
[2022-11-17] MEDS: ARIPiprazole 10 MG TABLET PO (20:52)
[2022-11-18] VITALS (18 sets, daily range): BP systolic 112–127; BP diastolic 55–71; PULSE 80–103; RESP 16–18; TEMP 36.1–36.5; O2SAT 97–99
[2022-11-18 05:22] LABS: Basophils Percent Auto 0.1 % (0.2-1.2); Eosinophils Absolute Auto 0.7 K/mm3 (0-0.3); Eosinophils Percent Auto 8.6 % (0-4.4); Hematocrit 32.8 % (37.0-47.0); Hemoglobin 10.4 g/dL (12.0-15.0); Immature Granulocyte Absolute 0.02 K/mm3 (0.00-0.031); Immature Granulocyte Percent A 0.3 % (0-0.5); Lymphocytes Absolute Auto 2.13 K/mm3 (0.9-3.2); Lymphocytes Percent Auto 27.8 % (18.3-44.2); Mean Corpuscular HGB Conc 31.7 g/dl (32-36); Mean Corpuscular Hemoglobin 25.6 pg (26-34); Mean Corpuscular Volume 80.6 fl (80-100); Mean Platelet Volume 9.6 fl (7.4-10.4); Monocytes Absolute Auto 0.7 K/mm3 (0.1-0.6); Monocytes Percent Auto 8.9 % (2.6-8.5); Neutrophils Absolute Auto 4.2 K/mm3 (1.3-6.7); Neutrophils Percent Auto 54.3 % (45.5-73.1); Platelet Count Result 389 k/mm3 (150-375); Red Blood Count 4.07 M/mm3 (4.2-5.4); Red Cell Distribution Width 15.3 % (11.5-14.5); White Blood Count 7.7 K/mm3 (4.5-10.0)
[2022-11-18 05:34] LABS: Alanine Aminotransferase 18 U/L (6-35); Albumin Level 3.6 g/dL (3.5-5.1); Alkaline Phosphatase 90 U/L (38-126); Anion Gap 8 mmol/L (8-16); Aspartate Amino Transferase 28 U/L (14-36); Bilirubin,Total 0.6 mg/dL (0.2-1.3); Blood Urea Nitrogen 20 mg/dL (7-17); Calcium 8.9 mg/dL (8.4-10.2); Carbon Dioxide 26 mmol/L (22-30); Chloride 101 mmol/L (98-107); Estimated CRCL calculation 24 ml/min; Estimated Glomerular Filt Rate 40; Glucose 166 mg/dL (65-110); Magnesium 1.1 mg/dL (1.6-2.3); Potassium 3.8 mmol/L (3.4-5.0); Sodium 135 mmol/L (137-145)
[2022-11-18] MEDS: amLODIPine BESYLATE 5 MG TABLET PO (08:14)
[2022-11-18] MEDS: ASPIRIN 81 MG ENTERIC TABLET PO (08:14)
[2022-11-18] MEDS: CHOLECALCIFEROL 1,000 UNITS TABLET 2000 UNITS PO (08:14)
[2022-11-18] MEDS: ATORVASTATIN 40 MG TABLET PO (08:14)
[2022-11-18] MEDS: LORATADINE/PSEUDOEPHEDRINE (*CRX) 10/240 MG TABLET ER 24 HR 1 TAB PO (08:14)
[2022-11-18 08:21] LABS: Glucose Point of Care 180 mg/dl (65-105)
[2022-11-18] MEDS: ENOXAPARIN 40 MG/0.4 ML SYRINGE SUB-Q (08:43)
--- NOTE | 2022-11-18 10:15 | PM.PNCARD ---
Progress Note: A&P Assessment and Plan (1) Chest pain: Qualifiers: Chest pain type: unspecified Qualified Code(s): R07.9 - Chest pain, unspecified Code(s): R07.9 - Chest pain, unspecified Status: Acute Assessment and Plan: Chest pain is very atypical and probably musculoskeletal in etiology. Troponins are negative. No acute ST-T wave abnormalities but she does have multitude risk factors coronary disease. Because of noted on echo will cancel lexiscan and plan to proceed with coronary angiogram as an outpatient. (2) Hypertension associated with diabetes: Code(s): E11.59 - Type 2 diabetes mellitus with other circulatory complications; I15.2 - Hypertension secondary to endocrine disorders Status: Acute Assessment and Plan: At goal. Continue amlodipine (3) Hypokalemia: Code(s): E87.6 - Hypokalemia Status: Acute Assessment and Plan: Corrected. (4) Hyperthyroidism: Code(s): E05.90 - Thyrotoxicosis, unspecified without thyrotoxic crisis or storm Status: Acute Assessment and Plan: Per hospitalist (5) Systolic ejection murmur: Code(s): R01.1 - Cardiac murmur, unspecified Status: Acute Assessment and Plan: Moderate . Outpatient follow up. (6) Bilateral carotid bruits: Code(s): R09.89 - Other specified symptoms and signs involving the circulatory and respiratory systems Status: Acute Assessment and Plan: Less than 50% carotid stenosis bilaterally Subjective Date/time seen: 11/18/22 10:15 Interval history: Cardiology follow up for chest pain Not having any chest pain this morning. Denies shortness of breath. Review of Systems Review of Systems: All systems reviewed & are unremarkable except as noted in HPI and below Constitutional: Constitutional: Denies body ache(s) and Reports excessive sweating Eyes: Eyes: Denies blurry vision ENT: Denies Normal hearing present Cardiovascular: Cardiovascular: Reports chest pain and Reports palpitations Respiratory: Respiratory: Denies chest congestion Gastrointestinal: Gastrointestinal: Denies abdominal pain Genitourinary: Genitourinary: Denies hematuria Musculoskeletal: Musculoskeletal: Denies back pain Integumentary/Breasts: Skin/Breast: Denies dry skin Neurologic: Denies Normal hearing present, Denies Abnormal speech present and Denies behavioral changes Psychiatric: Psychiatric: Denies behavioral changes Endocrine: Endocrine: Reports excessive sweating and Reports palpitations Hematologic/Lymphatic: Hematologic/Lymphatic: Denies easy bleeding Allergic/Immunologic: Allergic/Immunologic: Denies GI upset with certain foods Exam Narrative: Awake alert pleasant and appropriate appears stated age Const: General: comfortable and no acute distress HENMT: Face/Nose/Sinus: Normal nares present Mouth: Yes moist mucous membranes Eyes: General: appearance normal, both eyes and all related structures Sclera: sclerae normal Neck: Neck: supple and no JVD Carotids: bruit Resp: Effort & Inspection: normal respiratory effort Auscultation: clear to auscultation bilaterally Cardio: Rate: regular rate Rhythm: regular rhythm Heart sounds: Murmur heart sound present Other: 2-3/6 systolic ejection murmur at base and at apex. GI: Inspection: non-distended Auscultation: normal bowel sounds Skin: General skin exam: No normal color Neuro: Cranial nerves: No Normal hearing present Speech: normal speech and No Abnormal speech present Sensory Exam: normal sensation Extrem: General: normal to inspection Psych: Mental Status: mental status grossly normal Objective Data Vital Signs Vital Signs: Vital Signs - 24 hr 11/17/22 11:21 11/17/22 12:00 11/17/22 12:00 Temperature 36.4 C L Pulse Rate 84 114 H Respiratory Rate 18 Blood Pressure 135/55 L Pulse Oximetry 99 Oxygen Delivery Room Air 10
[2022-11-18 12:36] LABS: Glucose Point of Care 173 mg/dl (65-105)
--- NOTE | 2022-11-18 14:19 | PM.IMPN ---
Progress Note: A&P Assessment and Plan (1) Chest pain: Qualifiers: Chest pain type: unspecified Qualified Code(s): R07.9 - Chest pain, unspecified Code(s): R07.9 - Chest pain, unspecified Status: Acute Assessment and Plan: Monitor on telemetry trend Troponin ECHo reveals moderate aortic valve stenosis, cardiac stress test is consult Follow-up nautical instrument mechanic recommendation No chest pain now (2) Type 2 diabetes mellitus with hyperglycemia, without long-term current use of insulin: Code(s): E11.65 - Type 2 diabetes mellitus with hyperglycemia Status: Acute Assessment and Plan: Holding metformin Holding glimepiride Insulin sliding scale as needed (3) Chronic GERD: Code(s): K21.9 - Gastro-esophageal reflux disease without esophagitis Status: Acute (4) CKD (chronic kidney disease) stage 3, GFR 30-59 ml/min: Code(s): N18.30 - Chronic kidney disease, stage 3 unspecified Status: Acute Assessment and Plan: Holding chlorthalidone Continue to monitor Daily basic metabolic profile Plan Suspecting schizophrenia Patient has voiced hallucination, patient states someone is reading her med and talking something she does not really understand but also has ringing noise in both ears, patient denies ear pain, or any discharge from both ears need to rule out intracranial issue Order brain MRI of brain, consult neurologist for evaluation and management Subjective Date/time seen: 11/18/22 14:19 Interval history: I saw exam patient today. Patient denies chest pain, palpitation, shortness breath. Patient also denies abdomen pain vomiting diarrhea. Patient has ringing noise in both ears and also has voice hallucination. Patient denies purulent discharge from ears, headache, or focal weakness Exam Narrative: GENERAL: Pleasant, in no acute distress. Well-nourished. - EYES: EOMI. Anicteric. - HENT: Moist mucous membranes. - LUNGS: Clear to auscultation bilaterally, no wheezing, rhonchi, or rales. - CARDIOVASCULAR: Regular rate and rhythm. No murmur. No JVD. - ABDOMEN: Soft, non-tender and non-distended. No palpable masses. - EXTREMITIES: No edema. Peripheral pulses 2+. Non-tender. - NEUROLOGIC: No focal neurological deficits. CN II-XII grossly intact. - PSYCHIATRIC: Awake, Alert and oriented x 3. Appropriate mood and affect. - SKIN: No rashes or lesions. Warm. - LYMPH: No cervical lymphadenopathy. Objective Data Vital Signs Vital Signs: Vital Signs - 24 hr 11/17/22 16:00 11/17/22 16:00 11/17/22 16:20 Temperature 97.7 F Pulse Rate 82 85 Respiratory Rate 16 Blood Pressure 144/52 H Pulse Oximetry 97 Oxygen Delivery Room Air 11/17/22 18:00 11/17/22 19:52 11/17/22 20:00 Temperature 97.9 F Pulse Rate 79 78 71 Respiratory Rate 16 Blood Pressure 111/50 L Pulse Oximetry 98 Oxygen Delivery 11/17/22 20:00 11/17/22 23:52 11/17/22 22:00 Temperature 97.4 F L Pulse Rate 85 81 Respiratory Rate 16 Blood Pressure 130/53 L Pulse Oximetry 95 Oxygen Delivery Room Air 11/18/22 00:00 11/18/22 00:00 11/18/22 04:14 Temperature 97.7 F Pulse Rate 87 93 Respiratory Rate 16 Blood Pressure 118/65 Pulse Oximetry 98 Oxygen Delivery Room Air 11/18/22 02:00 11/18/22 04:00 11/18/22 04:00 Temperature Pulse Rate 80 87 Respiratory Rate Blood Pressure Pulse Oximetry Oxygen Delivery Room Air 11/18/22 05:46 11/18/22 07:47 11/18/22 11:58 Temperature 97.1 F L 97.0 F L Pulse Rate 92 90 97 Respiratory Rate 18 18 Blood Pressure 126/63 124/71 Pulse Oximetry 97 97 Oxygen Delivery Intake/Output Intake/Output: Intake & Output 11/15/22 11/16/22 11/17/22 11/18/22 23:59 23:59 23:59 23:59 Intake Total 2360 840 Output Total 373 142 6056 Balance -300 1510 -410 Meds/Results Medications: Active Medications Generic Name Dose Route Start Last Admin Trade Name F
[2022-11-18 17:01] LABS: Glucose Point of Care 198 mg/dl (65-105)
[2022-11-18] MEDS: INSULIN ASPART (*BKC) 100 UNITS/ML SUB-Q (17:47)
[2022-11-18] MEDS: ARIPiprazole 10 MG TABLET PO (20:52)
[2022-11-18 21:12] LABS: Glucose Point of Care 215 mg/dl (65-105)
[2022-11-19] VITALS (16 sets, daily range): BP systolic 116–153; BP diastolic 51–60; PULSE 80–109; RESP 16–19; TEMP 36.1–36.5; O2SAT 96–100
[2022-11-19] MEDS: INSULIN ASPART (*BKC) 100 UNITS/ML SUB-Q ×3 (08:52→17:18)
[2022-11-19] MEDS: amLODIPine BESYLATE 5 MG TABLET PO (08:55)
[2022-11-19] MEDS: ASPIRIN 81 MG ENTERIC TABLET PO (08:56)
[2022-11-19] MEDS: ATORVASTATIN 40 MG TABLET PO (08:56)
[2022-11-19] MEDS: ENOXAPARIN 40 MG/0.4 ML SYRINGE SUB-Q (08:56)
[2022-11-19] MEDS: LORATADINE/PSEUDOEPHEDRINE (*CRX) 10/240 MG TABLET ER 24 HR 1 TAB PO (08:56)
[2022-11-19] MEDS: CHOLECALCIFEROL 1,000 UNITS TABLET 2000 UNITS PO (08:56)
[2022-11-19] MEDS: PANTOPRAZOLE 40 MG TABLET PO (08:57)
[2022-11-19 09:04] LABS: Glucose Point of Care 298 mg/dl (65-105)
--- NOTE | 2022-11-19 09:59 | PM.IMPN ---
Progress Note: A&P Assessment and Plan (1) Chest pain: Qualifiers: Chest pain type: unspecified Qualified Code(s): R07.9 - Chest pain, unspecified Code(s): R07.9 - Chest pain, unspecified Status: Acute Assessment and Plan: Monitor on telemetry trend Troponin ECHo reveals moderate aortic valve stenosis, cardiac stress test is consult Follow-up home performance laborer recommendation No chest pain now (2) Type 2 diabetes mellitus with hyperglycemia, without long-term current use of insulin: Code(s): E11.65 - Type 2 diabetes mellitus with hyperglycemia Status: Acute Assessment and Plan: Holding metformin Holding glimepiride Insulin sliding scale as needed (3) Chronic GERD: Code(s): K21.9 - Gastro-esophageal reflux disease without esophagitis Status: Acute (4) CKD (chronic kidney disease) stage 3, GFR 30-59 ml/min: Code(s): N18.30 - Chronic kidney disease, stage 3 unspecified Status: Acute Assessment and Plan: Holding chlorthalidone Continue to monitor Daily basic metabolic profile Plan Suspecting schizophrenia Patient has voiced hallucination, patient states someone is reading her med and talking something she does not really understand but also has ringing noise in both ears, patient denies ear pain, or any discharge from both ears need to rule out intracranial issue may brain MRI of brain if she can tolerate, consult neurologist for evaluation and management Subjective Date/time seen: 11/19/22 09:59 Interval history: I saw exam patient today. Patient denies chest pain, palpitation, shortness breath. Patient also denies abdomen pain vomiting diarrhea. Patient has ringing noise in both ears and also has voice hallucination. Patient denies purulent discharge from ears, headache, or focal weakness Exam Narrative: GENERAL: Pleasant, in no acute distress. Well-nourished. - EYES: EOMI. Anicteric. - HENT: Moist mucous membranes. - LUNGS: Clear to auscultation bilaterally, no wheezing, rhonchi, or rales. - CARDIOVASCULAR: Regular rate and rhythm. No murmur. No JVD. - ABDOMEN: Soft, non-tender and non-distended. No palpable masses. - EXTREMITIES: No edema. Peripheral pulses 2+. Non-tender. - NEUROLOGIC: No focal neurological deficits. CN II-XII grossly intact. - PSYCHIATRIC: Awake, Alert and oriented x 3. Appropriate mood and affect. - SKIN: No rashes or lesions. Warm. - LYMPH: No cervical lymphadenopathy. Objective Data Vital Signs Vital Signs: Vital Signs - 24 hr 11/18/22 11:58 11/18/22 15:45 11/18/22 10:00 Temperature 97.0 F L 97.7 F Pulse Rate 97 85 103 H Respiratory Rate 18 18 Blood Pressure 124/71 123/60 Pulse Oximetry 97 97 Oxygen Delivery 11/18/22 12:00 11/18/22 14:00 11/18/22 16:00 Temperature Pulse Rate 102 H 87 90 Respiratory Rate Blood Pressure Pulse Oximetry Oxygen Delivery 11/18/22 18:00 11/18/22 20:06 11/18/22 20:00 Temperature 96.9 F L Pulse Rate 96 87 93 Respiratory Rate 16 Blood Pressure 112/55 L Pulse Oximetry 97 Oxygen Delivery 11/18/22 20:00 11/18/22 21:18 11/18/22 23:28 Temperature 97.3 F L Pulse Rate 93 86 89 Respiratory Rate 16 16 Blood Pressure 127/62 Pulse Oximetry 97 99 Oxygen Delivery Room Air 11/19/22 00:00 11/19/22 00:00 11/19/22 04:08 Temperature 97.5 F L Pulse Rate 84 84 87 Respiratory Rate 16 16 Blood Pressure 116/51 L Pulse Oximetry 99 96 Oxygen Delivery Room Air 11/19/22 04:00 11/19/22 04:00 11/19/22 05:48 Temperature Pulse Rate 83 83 90 Respiratory Rate 16 Blood Pressure Pulse Oximetry 96 Oxygen Delivery Room Air 11/19/22 07:31 11/19/22 09:10 Temperature 97.5 F L Pulse Rate 87 Respiratory Rate 17 Blood Pressure 116/57 L Pulse Oximetry 100 100 Oxygen Delivery Room Air Intake/Output Intake/Output: Intake & Output 11/16/22 11/17/22 11/18/22 11/19/22 23:59 23:59 23:59 23
[2022-11-19 11:44] LABS: Glucose Point of Care 197 mg/dl (65-105)
--- NOTE | 2022-11-19 11:59 | WPDNEURCNPN ---
Assessment and Plan Assessment and plan (1) Hallucinations, visual: Code(s): R44.1 - Visual hallucinations Status: Acute (2) Auditory hallucinations: Code(s): R44.0 - Auditory hallucinations Status: Acute Plan Consulted for two years history of auditory and visual hallucinations. Her cognition is otherwise normal, she is AOx3. I do not suspect an organic neurological cause for her hallucinations. Appears to be psychiatric in nature. MRI brain has been ordered. If normal, please have her follow-up with her psychiatrist. Consult date: 11/19/22 Reason for consult: hallucinations HPI: Nadeen Lanier is a 77 year old female with a history of HTN, RLS, DM, HLD presenting initially due to chest pain. During the admission, the hospitalist noted the patient's history of hallucinations. Patient reports that since her about two years ago, she has been having auditory and visual hallucinations. She hears fallen angels and demons talking to her during most times of the day and sometimes at night. She can see these entities as well and was able to give full description of their appearances. She reports that they are not able to hurt her or touch her, but that they were sent to test her danica. She denies any anxiety or depression and denies any SI/HI. She denies any concerns regarding her memory. She is very independent and does all ADLs including driving on her own. She still works -- teaches at a faith. Her family is aware of the hallucinations, and patient has already seen a psychiatrist for this. I noted that she has Abilify listed in her home medications. Patient denies any family history of mental illness that has been formally diagnosed. She mentions that she thinks her son may hear things too, but she thinks he pretends not to. Review of Systems Constitutional: Constitutional: Denies chills, Denies fever(s) and Denies weight loss Eyes: Eyes: Denies diplopia and Denies loss of vision ENT: Denies dizziness, Denies hearing loss and Reports tinnitus Cardiovascular: Cardiovascular: Reports chest pain, Denies syncope and Denies dyspnea Respiratory: Respiratory: Denies cough, Denies dyspnea and Denies wheezing Gastrointestinal: Gastrointestinal: Denies abdominal pain, Denies change in bowel habits and Denies vomiting Genitourinary: Genitourinary: Denies urinary incontinence Musculoskeletal: Musculoskeletal: Reports arthralgias and Denies joint swelling Integumentary/Breasts: Skin/Breast: Denies new lesions and Denies rash Neurologic: Reports as per HPI, Denies dizziness, Denies syncope and Denies loss of vision Psychiatric: Psychiatric: Denies anxiety and Denies depression Comments: auditory and visual hallucinations Endocrine: Endocrine: Denies cold intolerance and Denies heat intolerance Hematologic/Lymphatic: Hematologic/Lymphatic: Denies easy bleeding and Denies easy bruising Allergic/Immunologic: Allergic/Immunologic: Denies no additional allergic/immunologic complaints and Denies wheezing PMFSH Past Medical History Medical History Abnormality of heart beat Arthritis Chronic GERD Depression Essential (primary) hypertension HLD (hyperlipidemia) Hy kid NOS w cr kid I-IV Hyperlipidemia associated with type 2 diabetes mellitus Primary osteoarthritis, unspecified site Type 2 diabetes mellitus with hyperglycemia, without long-term current use of insulin Surgical History Surgical History History of appendectomy History of hip replacement History of hysterectomy with bilateral oophorectomy History of knee replacement Family History Family History Mother Hypertension Family history of coronary artery disease Other Diabetes mellitus Family history of arthritis Social History Social History (Reviewed 11/19/22 @ 12:
[2022-11-19 16:12] LABS: Glucose Point of Care 133 mg/dl (65-105)
[2022-11-19] MEDS: ARIPiprazole 10 MG TABLET PO (20:19)
[2022-11-19 20:38] LABS: Glucose Point of Care 203 mg/dl (65-105)
[2022-11-20] VITALS (10 sets, daily range): BP systolic 110–131; BP diastolic 52–78; PULSE 74–97; RESP 12–20; TEMP 36.2–36.8; O2SAT 98–100
[2022-11-20 08:45] LABS: Glucose Point of Care 237 mg/dl (65-105)
[2022-11-20] MEDS: INSULIN ASPART (*BKC) 100 UNITS/ML SUB-Q ×2 (08:54→12:19)
[2022-11-20] MEDS: ASPIRIN 81 MG ENTERIC TABLET PO (08:55)
[2022-11-20] MEDS: LORATADINE/PSEUDOEPHEDRINE (*CRX) 10/240 MG TABLET ER 24 HR 1 TAB PO (08:56)
[2022-11-20] MEDS: CHOLECALCIFEROL 1,000 UNITS TABLET 2000 UNITS PO (08:56)
[2022-11-20] MEDS: PANTOPRAZOLE 40 MG TABLET PO (08:56)
[2022-11-20] MEDS: ATORVASTATIN 40 MG TABLET PO (08:57)
[2022-11-20] MEDS: amLODIPine BESYLATE 5 MG TABLET PO (08:57)
[2022-11-20] MEDS: ENOXAPARIN 40 MG/0.4 ML SYRINGE SUB-Q (08:57)
[2022-11-20 12:05] LABS: Glucose Point of Care 276 mg/dl (65-105)
--- NOTE | 2022-11-20 12:39 | PM.IMPN ---
Progress Note: A&P Assessment and Plan (1) Chest pain: Qualifiers: Chest pain type: unspecified Qualified Code(s): R07.9 - Chest pain, unspecified Code(s): R07.9 - Chest pain, unspecified Status: Acute Assessment and Plan: Monitor on telemetry trend Troponin ECHo reveals moderate aortic valve stenosis, cardiac stress test is consult Follow-up fish worm grower recommendation No chest pain now (2) Type 2 diabetes mellitus with hyperglycemia, without long-term current use of insulin: Code(s): E11.65 - Type 2 diabetes mellitus with hyperglycemia Status: Acute Assessment and Plan: Holding metformin Holding glimepiride Insulin sliding scale as needed (3) Chronic GERD: Code(s): K21.9 - Gastro-esophageal reflux disease without esophagitis Status: Acute (4) CKD (chronic kidney disease) stage 3, GFR 30-59 ml/min: Code(s): N18.30 - Chronic kidney disease, stage 3 unspecified Status: Acute Assessment and Plan: Holding chlorthalidone Continue to monitor Daily basic metabolic profile Plan Suspecting schizophrenia Patient has voiced hallucination, patient states someone is reading her med and talking something she does not really understand but also has ringing noise in both ears, patient denies ear pain, or any discharge from both ears need to rule out intracranial issue brain MRI of brain revealed ?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 consulted neurologist for evaluation and management Patient is on aspirin 81 mg daily p.o. Lipitor 40 mg daily p.o. Subjective Date/time seen: 11/20/22 12:39 Interval history: I saw exam patient today. Patient denies chest pain, palpitation, shortness breath. Patient denies headache ear pain hallucination Exam Narrative: GENERAL: Pleasant, in no acute distress. Well-nourished. - EYES: EOMI. Anicteric. - HENT: Moist mucous membranes. - LUNGS: Clear to auscultation bilaterally, no wheezing, rhonchi, or rales. - CARDIOVASCULAR: Regular rate and rhythm. No murmur. No JVD. - ABDOMEN: Soft, non-tender and non-distended. No palpable masses. - EXTREMITIES: No edema. Peripheral pulses 2+. Non-tender. - NEUROLOGIC: No focal neurological deficits. CN II-XII grossly intact. - PSYCHIATRIC: Awake, Alert and oriented x 3. Appropriate mood and affect. - SKIN: No rashes or lesions. Warm. - LYMPH: No cervical lymphadenopathy. Objective Data Vital Signs Vital Signs: Vital Signs - 24 hr 11/19/22 15:51 11/19/22 14:00 11/19/22 16:00 Temperature 97.0 F L Pulse Rate 100 109 H 92 Respiratory Rate 19 Blood Pressure 153/55 H Pulse Oximetry 99 Oxygen Delivery 11/19/22 18:00 11/19/22 20:00 11/19/22 20:00 Temperature 97.6 F Pulse Rate 89 87 87 Respiratory Rate 16 16 Blood Pressure 121/54 L Pulse Oximetry 98 98 Oxygen Delivery Room Air 11/19/22 20:00 11/19/22 22:00 11/20/22 00:00 Temperature 97.2 F L Pulse Rate 93 83 86 Respiratory Rate 16 Blood Pressure 110/78 Pulse Oximetry 98 Oxygen Delivery 11/20/22 00:00 11/20/22 00:00 11/20/22 01:35 Temperature Pulse Rate 86 86 97 Respiratory Rate 16 Blood Pressure Pulse Oximetry 98 Oxygen Delivery Room Air 11/20/22 03:32 11/20/22 03:39 11/20/22 04:00 Temperature 97.8 F Pulse Rate 82 82 80 Respiratory Rate 16 16 Blood Pressure 118/59 L Pulse Oximetry 98 98 Oxygen Delivery Room Air 11/20/22 05:37 11/20/22 08:00 11/20/22 11:21 Temperature 98.3 F 98.2 F Pulse Rate 79 90 74 Respiratory Rate 12 20 Blood Pressure 120/54 L 131/52 L Pulse Oximetry 98 100 Oxygen Delivery 11/20/22 08:00 11/20/22 12:00 Temperature Pulse Rate 74 Respiratory Rate 20 Blood Pressure Pulse Oximetry 100 Oxygen Delivery Room Air Room Air Intake/Output Intake/Output: Intake & Output 11/17/22 11/18/22 11/19/22 11/20/22 23:59 23:59 23:59 23:59 Intake Total 7290 2428 1
--- NOTE | 2022-11-20 12:44 | PM.DS ---
DS: Admitting Diagnosis Discharge Date 11/20/22 Admitting Diagnosis Chest pain Hypokalemia, hyperthyroidism Hypertension Diabetes DS: Discharge Diagnosis Discharge Diagnosis (1) Chest pain: Qualifiers: Chest pain type: unspecified Qualified Code(s): R07.9 - Chest pain, unspecified Code(s): R07.9 - Chest pain, unspecified Status: Acute (2) Type 2 diabetes mellitus with hyperglycemia, without long-term current use of insulin: Code(s): E11.65 - Type 2 diabetes mellitus with hyperglycemia Status: Acute (3) Chronic GERD: Code(s): K21.9 - Gastro-esophageal reflux disease without esophagitis Status: Acute (4) CKD (chronic kidney disease) stage 3, GFR 30-59 ml/min: Code(s): N18.30 - Chronic kidney disease, stage 3 unspecified Status: Acute DS: Summary Hospital Course Hospital Course: (1) Chest pain: ?Qualifiers: ?Chest pain type:?unspecified? Qualified Code(s):?R07.9 - Chest pain, unspecified ?Code(s): R07.9 - Chest pain, unspecified ?Status:?Acute ?Assessment and Plan: Monitor on telemetry trend Troponin ECHo reveals moderate aortic valve stenosis, cardiac stress test is canceled. Dance Historian recommended to discharge patient, they will follow-up patient in the office, plans cardiac catheterization No chest pain now (2) Type 2 diabetes mellitus with hyperglycemia, without long-term current use of insulin: ?Code(s): E11.65 - Type 2 diabetes mellitus with hyperglycemia ?Status:?Acute ?Assessment and Plan: Holding metformin, Holding glimepiride during hospitalization Insulin sliding scale as needed Resume home medication and discharge (3) Chronic GERD: ?Code(s): K21.9 - Gastro-esophageal reflux disease without esophagitis ?Status:?Acute (4) CKD (chronic kidney disease) stage 3, GFR 30-59 ml/min: ?Code(s): N18.30 - Chronic kidney disease, stage 3 unspecified ?Status:?Acute ?Assessment and Plan: Holding chlorthalidone during hospitalization Continue to monitor Daily basic metabolic profile Improves Suspecting schizophrenia Patient has voiced hallucination, patient states someone is reading her med and talking something she does not really understand but also has ringing noise in both ears, patient denies ear pain, or any discharge from both ears need to rule out intracranial issue brain MRI of brain revealed ?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 consulted neurologist for evaluation and management Patient is on aspirin 81 mg daily p.o. Lipitor 40 mg daily p.o. I have discussed the MRI finding with Dr. Majano, she considers the patient's hallucination is not related to the old stroke, and no further stroke workup now, but she recommends discharge patient today Time Spent with Patient Time attestation: Total time spent providing and/or coordinating discharge services: Exam Narrative: GENERAL: Pleasant, in no acute distress. Well-nourished. - EYES: EOMI. Anicteric. - HENT: Moist mucous membranes. - LUNGS: Clear to auscultation bilaterally, no wheezing, rhonchi, or rales. - CARDIOVASCULAR: Regular rate and rhythm. No murmur. No JVD. - ABDOMEN: Soft, non-tender and non-distended. No palpable masses. - EXTREMITIES: No edema. Peripheral pulses 2+. Non-tender. - NEUROLOGIC: No focal neurological deficits. CN II-XII grossly intact. - PSYCHIATRIC: Awake, Alert and oriented x 3. Appropriate mood and affect. - SKIN: No rashes or lesions. Warm. - LYMPH: No cervical lymphadenopathy. DS: Data Data Completed and Pending Labs on day of discharge: Labs from last 24 hours 11/20/22 11/20/22 11/19/22 11:17 08:27 20:28 POC Capillary Glucose 276 H 237 H 203 H 11/19/22 15:54 POC Capillary Glucose 133 H Discharge Plan Discharge Attending physician on discharge: Venkata Osuna Consulting providers: Tenzin Lamar; Gudelia Majano
== END 2022-11-20 14:00 | disposition home or self-care (01) ==
LOC: ANHED 15:11 → ANHIMU 21:01
PROVIDERS: Chiropractor; Emergency Medicine; Internal Medicine; Internal Medicine Cardiovascular Disease; Admitting Provider Internal Medicine; Emergency Provider Student in an Organized Health Care Education/Training Program; PCP Family Medicine; Visit Provider Hospitalist
DX: R07.9 Chest pain, unspecified (principal); N17.9 Acute kidney failure, unspecified; I12.9 Hypertensive chronic kidney disease with stage 1 through stage 4 chronic kidney disease, or unspecified chronic kidney disease; E11.22 Type 2 diabetes mellitus with diabetic chronic kidney disease; N18.30 Chronic kidney disease, stage 3 unspecified; R60.0 Localized edema; R44.1 Visual hallucinations; R44.0 Auditory hallucinations; R00.9 Unspecified abnormalities of heart beat; I45.10 Unspecified right bundle-branch block; I44.30 Unspecified atrioventricular block; E11.65 Type 2 diabetes mellitus with hyperglycemia; E11.59 Type 2 diabetes mellitus with other circulatory complications; R09.89 Other specified symptoms and signs involving the circulatory and respiratory systems; E87.6 Hypokalemia; Z20.822 Contact with and (suspected) exposure to COVID-19; E05.90 Thyrotoxicosis, unspecified without thyrotoxic crisis or storm; R01.1 Cardiac murmur, unspecified; H93.19 Tinnitus, unspecified ear; K21.9 Gastro-esophageal reflux disease without esophagitis; G25.81 Restless legs syndrome; F32.A Depression, unspecified; I08.3 Combined rheumatic disorders of mitral, aortic and tricuspid valves; I27.20 Pulmonary hypertension, unspecified; J98.11 Atelectasis; M19.90 Unspecified osteoarthritis, unspecified site; F10.90 Alcohol use, unspecified, uncomplicated; Z87.898 Personal history of other specified conditions; Z86.73 Personal history of transient ischemic attack (TIA), and cerebral infarction without residual deficits; Z79.82 Long term (current) use of aspirin; Z79.84 Long term (current) use of oral hypoglycemic drugs; Z79.1 Long term (current) use of non-steroidal anti-inflammatories (NSAID); Z79.899 Other long term (current) drug therapy; Z82.49 Family history of ischemic heart disease and other diseases of the circulatory system
CPT/HCPCS: 36415; 70553; 71046; 80053; 80061; 82948; 83036; 83690; 83735; 84436; 84443; 84480; 84484; 85025; 85380; 85610; 85730; 87637; 93005; 93306; 93880; 96372; 99285; A9270; A9577; G0378; J1650; J1815

== ENCOUNTER 2022-12-20 01:28 | Day surgery (SDC) | payer MEDICARE, SELFPAY ==
[2022-12-17 16:27] VITALS: BMI 24.2
[2022-12-20] VITALS (18 sets, daily range): BP systolic 104–149; BP diastolic 44–96; PULSE 64–86; RESP 12–20; TEMP 36.9; O2SAT 95–98; BMI 25.7
[2022-12-20 08:17] LABS: Basophils Percent Auto 0.5 % (0.2-1.2); Eosinophils Absolute Auto 0.3 K/mm3 (0-0.3); Eosinophils Percent Auto 4.7 % (0-4.4); Hematocrit 33.3 % (37.0-47.0); Hemoglobin 10.6 g/dL (12.0-15.0); Immature Granulocyte Absolute 0.01 K/mm3 (0.00-0.031); Immature Granulocyte Percent A 0.2 % (0-0.5); Lymphocytes Absolute Auto 2.45 K/mm3 (0.9-3.2); Lymphocytes Percent Auto 36.8 % (18.3-44.2); Mean Corpuscular HGB Conc 31.8 g/dl (32-36); Mean Corpuscular Hemoglobin 25.3 pg (26-34); Mean Corpuscular Volume 79.5 fl (80-100); Mean Platelet Volume 9.5 fl (7.4-10.4); Monocytes Absolute Auto 0.6 K/mm3 (0.1-0.6); Monocytes Percent Auto 9.2 % (2.6-8.5); Neutrophils Absolute Auto 3.2 K/mm3 (1.3-6.7); Neutrophils Percent Auto 48.6 % (45.5-73.1); Platelet Count Result 333 k/mm3 (150-375); Red Blood Count 4.19 M/mm3 (4.2-5.4); Red Cell Distribution Width 15.7 % (11.5-14.5); White Blood Count 6.7 K/mm3 (4.5-10.0)
[2022-12-20 08:26] LABS: INR 0.9
[2022-12-20 08:30] LABS: Anion Gap 11 mmol/L (8-16); Blood Urea Nitrogen 28 mg/dL (7-17); Calcium 9.9 mg/dL (8.4-10.2); Carbon Dioxide 27 mmol/L (22-30); Chloride 99 mmol/L (98-107); Estimated CRCL calculation 23 ml/min; Estimated Glomerular Filt Rate 36; Glucose 156 mg/dL (65-110); Potassium 3.8 mmol/L (3.4-5.0); Sodium 137 mmol/L (137-145)
--- NOTE | 2022-12-20 10:50 | WPDMODSED ---
Moderate Sedation Note-Pt Data Patient Data Diagnosis: Exertional angina aortic stenosis Present Complaint: exertional chest pain Procedure to be performed/Plan: left heart catheterization Allergies Allergy/AdvReac Type Severity Reaction Status Date / Time No Known Drug Allergies Allergy Unknown Unknown Verified 12/17/22 16:47 Home Medications Medication Instructions Recorded Confirmed Type aspirin 81 mg tablet,delayed 81 mg PO DAILY 03/22/19 12/17/22 History release cholecalciferol (vitamin D3) 125 50 mcg PO DAILY 03/22/19 12/17/22 History mcg (5,000 unit) capsule glimepiride 2 mg tablet 2 mg PO QAM #90 tabs 08/16/22 12/17/22 Rx meloxicam 7.5 mg tablet 7.5 mg PO DAILY #90 tabs 08/16/22 12/17/22 Rx omeprazole 20 mg capsule,delayed 20 mg PO DAILY #90 caps 09/06/22 12/17/22 Rx release amlodipine 5 mg tablet 5 mg PO DAILY #90 tabs 09/20/22 12/17/22 Rx aripiprazole 10 mg tablet 10 mg PO HS 11/16/22 12/17/22 History atorvastatin 40 mg tablet 40 mg PO QAM 11/16/22 12/17/22 History cetirizine 5 mg-pseudoephedrine ER 1 tablet PO Q12H 11/16/22 12/20/22 History 120 mg tablet,extended release,12hr (Zyrtec-D) chlorthalidone 25 mg tablet 25 mg PO QMWF 11/16/22 12/17/22 History metformin 500 mg tablet,extended 1,000 mg PO BID 11/16/22 12/17/22 History release 24 hr blood-glucose meter,continuous #1 ea 11/30/22 11/30/22 Rx (Dexcom G6 Bar Captain) blood-glucose sensor (Dexcom G6 #3 ea 11/30/22 11/30/22 Rx Sensor device) blood-glucose transmitter (Dexcom #1 ea 11/30/22 11/30/22 Rx G6 Transmitter device) donepezil 5 mg tablet (Aricept) 5 mg PO QHS 11/30/22 12/17/22 History quinapril 40 mg tablet 40 mg PO DAILY 12/17/22 12/17/22 History Current Medications: Active Medications Sodium Chloride (Normal Saline Iv) 500 mls @ 100 mls/hr IV CONT .Q5H [facility], [facility] Sedation/Anesthesia: No previous sedation/anesthesia problems (including family history). [facility] Past Medical History Medical History Abnormality of heart beat Arthritis Chronic GERD Depression Essential (primary) hypertension HLD (hyperlipidemia) Hy kid NOS w cr kid I-IV Hyperlipidemia associated with type 2 diabetes mellitus Primary osteoarthritis, unspecified site Type 2 diabetes mellitus with hyperglycemia, without long-term current use of insulin Surgical History Surgical History History of appendectomy History of hip replacement History of hysterectomy with bilateral oophorectomy History of knee replacement Family History Family History Mother Hypertension Family history of coronary artery disease Other Diabetes mellitus Family history of arthritis Social History Social History Smoking status: Never smoker Second hand tobacco smoke exposure: No Alcohol intake: never Alcohol use details: holidays Substance use: never Substance use type: does not use Lack of Transportation: No Lack of Food: Never True Current Housing: I Have Housing Concerned About Future Housing: No Difficulty Paying Gas/Electric Bills: No Difficulty Paying for Meds: No Currently Unemployed: No Education: High School Diploma/GED Difficulty w/ Childcare or Family Care: No Living arrangements: alone Occupation/Education: retired Gender identity (if verbalized by the patient): Female Sexual Orientation (if Verbalized by the Patient): Straight or Heterosexual Spiritual care concerns: No Mod Sed Physical Exam Physical Exam Pre Procedural Exam: Normal: Appearance, Throat, Airway, Lungs, Heart Size, Heart Rate, Heart Rhythm, Neuro Exam and Extremities Hours since solid foods: 12 Hours since liquid intake: 12 Mallampati Classification: class II Internal Medicine - PN: Obj Da Vital Signs Vital Signs: V
--- NOTE | 2022-12-20 11:21 | WPDCARDPROC ---
Cardiac Cath Procedure Note Date of procedure:: 12/20/22 Performing physician:: Garrett Gilman MD Indication:: exertional chest pain /AGUILERA aortic stenosis Brief clinical history:: this is a 77-year-old lady recently seen in the hospital for consultation with 4-6 month history of exertional chest discomfort and dyspnea. Echocardiogram in the hospital suggested evidence of at least moderate aortic stenosis for this reason angiography has been recommended for ischemia evaluation rather than stress testing. Procedure Procedure performed:: Coronary angiography left ventricular/ central aortic hemodynamic assessment Sedation/Medication given:: fentanyl 50 mg Versed 2 mg case start time 10:55 a.m. case end time 11:08 a.m. sedation provided by Tg Rojo RN, trained observer Access site:: right femoral artery Estimated blood loss:: 20 cc Procedure note:: patient was brought to the cardiac catheterization lab in the postabsorptive state where the right femoral triangle was prepped and draped in usual fashion. Anesthesia was provided with 1% lidocaine infiltrated locally. Using the modified Seldinger technique a 5 Swazi sheath was placed into the femoral artery after this left heart catheterization was carried out. A 5 Swazi angled pigtail catheter was used to measure left-sided hemodynamics and a pullback across the aortic valve. Patient's creatinine was slightly elevated I therefore elected not to perform a left ventricular injection. Following this standard 5 Swazi FL4 catheter was used to engage and inject the left coronary artery in multiple projections and then a 5 Swazi JR4 catheter was used to engage inject the right coronary artery. The cineangiograms were reviewed and the case was terminated. An angiogram was done of the femoral artery through the sheath after which I determine to pull the sheath with manual pressure in the holding area. The puncture was too low for an Angio-Seal device. 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 Findings:: Hemodynamics: Central aortic pressure is 136/76 left ventricle 140 over 3 and diastolic pressure 14 there is no significant gradient on pullback across the aortic valve. The left main coronary artery is large in caliber and widely patent the left anterior descending is a medium caliber artery extending down to around the apex. The artery gives rise to 3 diagonal branches all of which are diminutive but are angiographically non disease. There is no angiographic abnormality in the LAD circumflex is a moderate caliber vessel giving rise to the marginal branches the circumflex is smooth and angiographically free of disease the right coronary artery is large in caliber and dominant to the posterior circulation the right coronary artery is angiographically unremarkable in appearance Conclusion:: 1. right coronary dominant circulation with no angiographic abnormalities 2. left-sided hemodynamics demonstrating no significant stenosis of the aortic valve with no transvalvular gradient on pullback Garrett Gilman MD [facility]
--- NOTE | 2022-12-20 14:30 | SUR.PHASEII ---
pt HOB elevated <30 degrees. pt voided on bedpan. po fluids given and pt vernell well. pt does not want lunch at this time. no complications rt groin
--- NOTE | 2022-12-20 16:13 | SUR.PHASEII ---
amb to bathroom and return to chair. vernell well. no complications rt groin. instructions to pt and family. copy to family
== END 2022-12-20 17:11 | disposition home or self-care (01) ==
PROVIDERS: PCP Family Medicine; Visit Provider Specialist
PROC: 4A023N7 Measurement of Cardiac Sampling and Pressure, Left Heart, Percutaneous Approach (ICD-10-PCS; CPT 93452; principal; 2022-12-20 10:00)
DX: R07.89 Other chest pain (principal); R06.09 Other forms of dyspnea; I12.9 Hypertensive chronic kidney disease with stage 1 through stage 4 chronic kidney disease, or unspecified chronic kidney disease; E11.22 Type 2 diabetes mellitus with diabetic chronic kidney disease; N18.30 Chronic kidney disease, stage 3 unspecified; R93.1 Abnormal findings on diagnostic imaging of heart and coronary circulation; I35.0 Nonrheumatic aortic (valve) stenosis; E78.5 Hyperlipidemia, unspecified; I51.89 Other ill-defined heart diseases; Z79.82 Long term (current) use of aspirin; Z79.4 Long term (current) use of insulin; Z79.84 Long term (current) use of oral hypoglycemic drugs
CPT/HCPCS: 36415; 80048; 85025; 85610; 93458; C1887; C1894; J0461; J1644; J2250; J3010; J7040

== ENCOUNTER 2023-09-01 07:15 | Outpatient (CLI) | payer MEDICARE, SELFPAY ==
--- NOTE | ~2023-09-01 | US_ITS ---
US renal BI 09/01/2023 10:06 Procedure: Realtime transabdominal ultrasound of the kidneys and bladder. Indication: Chronic kidney disease Comparison: 09/11/2010 Findings: Renal echotexture is normal bilaterally without hydronephrosis, contour deforming mass or r enal calculus. The right kidney measures 8.5 cm and left kidney measures 9.4 cm. Bladder within norm al limits. Incidental note is made of a 2.8 cm liver cyst. Impression: 1: Unremarkable renal ultrasound. No stones, masses or hydronephrosis. Reviewed, dictated and finalized at location B. Impression: 1: Unremarkable renal ultrasound. No stones, masses or hydronephrosis.
== END 2023-09-01 07:16 | disposition home or self-care (01) ==
PROVIDERS: PCP Family Medicine; Visit Provider Internal Medicine Nephrology
DX: E11.22 Type 2 diabetes mellitus with diabetic chronic kidney disease (principal); I12.9 Hypertensive chronic kidney disease with stage 1 through stage 4 chronic kidney disease, or unspecified chronic kidney disease; N18.32 Chronic kidney disease, stage 3b
CPT/HCPCS: 76775

== ENCOUNTER 2023-10-13 14:15 | Outpatient (RCR) | payer MEDICARE, SELFPAY | END 2023-10-21 08:48 | disposition home or self-care (01) | LOC: ANHDMC 14:15 | PROVIDERS: PCP Family Medicine; Visit Provider Internal Medicine | DX: E11.65 Type 2 diabetes mellitus with hyperglycemia (principal); Z71.89 Other specified counseling; G31.84 Mild cognitive impairment of uncertain or unknown etiology; G35 Multiple sclerosis | CPT/HCPCS: G0108 ==